=== PATIENT | female | born 1950 | race Caucasian/White ===

== ENCOUNTER 2019-12-03 16:58 | Inpatient (IN) | payer MEDICARE, OTHER ==
[~2019-12-03] VITALS: Ht 165.1 cm; Wt 95.5 kg
[2019-12-03] MEDS ORDERED: VANCOMYCIN 1G/D5W 200 ML PIGGYBACK IV ONE (19:00)
--- NOTE | 2019-12-03 19:00 | NUR ---
Dr. Bronson at bedside for MSE.
[2019-12-03] MEDS ORDERED: VANCOMYCIN HCL 500 MG VIAL ONE (19:17)
[2019-12-03] MEDS ORDERED: VANCOMYCIN 1000 MG VIAL ONE (19:17)
[2019-12-03 19:28] LABS: BASOPHILS # (AUTO) 0.1 K/uL (0.0-8.0); BASOPHILS % (AUTO) 1.2 % (0.0-2.0); EOSINOPHILS # (AUTO) 0.3 K/uL (0.0-0.7); EOSINOPHILS % (AUTO) 3.3 % (0.0-7.0); HEMATOCRIT 34.4 % (31.2-41.9); HEMOGLOBIN 11.8 g/dL (10.9-14.3); LYMPHOCYTES # (AUTO) 1.9 K/uL (20.0-40.0); LYMPHOCYTES % (AUTO) 22.4 % (20.5-51.5); MEAN CORPUSCULAR HEMOGLOBIN 28.2 uug (24.7-32.8); MEAN CORPUSCULAR HGB CONC 34 g/dL (32.3-35.6); MEAN CORPUSCULAR VOLUME 81.9 fL (75.5-95.3); MONOCYTES # (AUTO) 0.7 K/uL (2.0-10.0); MONOCYTES % (AUTO) 8.2 % (0.0-11.0); NEUTROPHILS # (AUTO) 5.5 K/uL (1.8-8.9); NEUTROPHILS % (AUTO) 64.9 % (38.5-71.5); PLATELET COUNT (AUTO) 230 K/uL (179-408); WHITE BLOOD COUNT (AUTO) 8.5 K/uL (3.8-11.8)
[2019-12-03 19:38] LABS: CARBON DIOXIDE 25 mmol/L (21-32); CHLORIDE 102 mmol/L (98-107); CREATININE 1.7 mg/dL (0.6-1.3); POTASSIUM 4.2 mmol/L (3.5-5.1); UREA NITROGEN, BLOOD 37 mg/dL (7-18)
[2019-12-03 19:40] LABS: GLUCOSE 383 mg/dL (74-106)
--- NOTE | 2019-12-03 19:46 | NUR ---
Xray at bedside.
[2019-12-03 19:52] LABS: ALANINE AMINOTRANSFERASE 37 U/L (14-59); ALKALINE PHOSPHATASE 105 U/L (50-136); ASPARTATE AMINOTRANSFERASE 28 U/L (15-37); BILIRUBIN,TOTAL 0.6 mg/dL (0.2-1.0); TOTAL PROTEIN, SERUM 7.7 g/dL (6.4-8.2)
[2019-12-03 19:57] LABS: BILIRUBIN,DIRECT 0.1 mg/dL (0.0-0.2)
--- NOTE | 2019-12-03 19:58 | NUR ---
Pt unable to provide urine at this time.
--- NOTE | 2019-12-03 20:32 | NUR ---
Called [facility] to page Anthony Coughlin NP.
--- NOTE | 2019-12-03 20:47 | NUR ---
Dr. Bronson speaking with Anthony Ortiz NP. Patient accepted for admission to [facility], diagnosis: cellulitis left foot.
--- NOTE | 2019-12-03 20:55 | NUR ---
Pt provided urine sample, sent to lab.
--- NOTE | 2019-12-03 20:58 | NUR ---
Anthony Ortiz DEVELOPER ANALYST at bedside.
[2019-12-03 21:08] LABS: *BILIRUBIN,URIN NEGATIVE (NEGATIVE); *BLOOD, URINE NEGATIVE (NEGATIVE); *COLOR,URINE YELLOW (YELLOW); *KETONES,URINE NEGATIVE (NEGATIVE); *UROBILINOGEN,URINE 0.2 E.U./dl (NORMAL); LEUKOCYTE ESTERASE ,URINE NEGATIVE (NEGATIVE); NITRITE, URINE NEGATIVE (NEGATIVE)
[2019-12-03 21:09] LABS: *CLARITY,URINE HAZY (CLEAR); UGLUCOSE 1+ (NEGATIVE)
--- NOTE | 2019-12-03 21:16 | NUR ---
Per pt's daughter, unable to get list of medications will need to call their pharmacy tomorrow.
--- NOTE | 2019-12-03 21:21 | NUR ---
Report given to Patricia PAUL Medsurg.
[2019-12-03 21:26] LABS: BACTERIA,URINE FEW /HPF (NONE SEEN); RBC,URINE 0-3 /HPF (0-3); SQUAMOUS EPITHELIAL CELL,UR FEW /HPF (NONE SEEN); WBC,URINE 0-3 /HPF (0-3)
[2019-12-03] MEDS ORDERED: INSULIN REGULAR, HUMAN 300 UNIT/3 ML VIAL ONE (21:36)
[2019-12-03] MEDS ORDERED: PIPERACILLIN SODIUM/TAZOBACTAM 3.375 G in IV DEXTROSE 5% 50 ML IV SCH (21:45)
[2019-12-03] MEDS ORDERED: Z GUARD REMEDY PASTE 57 GM TUBE TOP PRN (21:45)
[2019-12-03] MEDS ORDERED: DEXTROSE 50% 50 ML DISP.SYRIN IV PRN (21:45)
[2019-12-03] MEDS ORDERED: INSULIN REGULAR, HUMAN 300 UNIT/3 ML VIAL SQ PRN (21:45)
[2019-12-03] MEDS ORDERED: ACETAMINOPHEN 325 MG TABLET PO PRN (21:45)
[2019-12-03] MEDS ORDERED: MAGNESIUM HYDROXIDE 30 ML LIQUID UDC PO PRN (21:45)
[2019-12-03] MEDS ORDERED: ONDANSETRON 4 MG/2 ML VIAL IV PRN (21:45)
[2019-12-03] MEDS ORDERED: INSULIN REGULAR, HUMAN 300 UNIT/3 ML VIAL IV ONE (21:45)
[2019-12-03] MEDS ORDERED: PIPERACILLIN/TAZOBACTAM/D5W 2.25 G in PREMIXED 1 EACH IV SCH (22:00)
[2019-12-03 22:23] VITALS: BP 144/55
--- NOTE | 2019-12-03 22:30 | NUR ---
admitted this 69 y.o. pleasant lady,via gurney,with complaints of left 4th toe cellulitis,accompanied by er nurse and her daughter,transferred to bed and kept warm and comfortable, iv site on rt . forearm patent and intact, ivpb vanco infusing well.needs attended to, admission care rendered.asymptomatic of any ssx of diabetic crises.halfway assessment done, photo of left 4th toe taken, cleanse with normal saline and covered with dry sterile gauze.admission orders carried out.assisted to br , voided freely well .
[2019-12-03] MEDS ORDERED: PIPERACILLIN SODIUM/TAZO 3.375 GM VIAL ONE (23:26)
[2019-12-03] MEDS: IV NS 1000 ML 1,000 ML IV PRN (23:29)
[2019-12-03] MEDS ORDERED: PIPERACILLIN/TAZOBACTAM/D5W 100 ML ONE (23:32)
--- NOTE | 2019-12-04 | NUR ---
ZOSYN 2.25GM INFUSED ORDERED, RESTIN QUIETLY IN BED, CALL LITE W/I REACH.HOB ELEVATED, ASPIRATION PREC OBSERVED. DVT PUMPS ON .
--- NOTE | 2019-12-04 02:30 | NUR ---
sound asleep in bed, no acute distress noted.iv fluids infusing well w/o any problems.list of meds will be brought in by daughter this am.
[2019-12-04 05:13] VITALS: BP 124/41
[2019-12-04 06:24] LABS: BASOPHILS # (AUTO) 0.1 K/uL (0.0-8.0); BASOPHILS % (AUTO) 0.7 % (0.0-2.0); EOSINOPHILS # (AUTO) 0.3 K/uL (0.0-0.7); EOSINOPHILS % (AUTO) 3.8 % (0.0-7.0); HEMATOCRIT 31.8 % (31.2-41.9); HEMOGLOBIN 10.8 g/dL (10.9-14.3); LYMPHOCYTES # (AUTO) 1.7 K/uL (20.0-40.0); LYMPHOCYTES % (AUTO) 20.7 % (20.5-51.5); MEAN CORPUSCULAR HEMOGLOBIN 28.1 uug (24.7-32.8); MEAN CORPUSCULAR HGB CONC 34 g/dL (32.3-35.6); MEAN CORPUSCULAR VOLUME 82.6 fL (75.5-95.3); MONOCYTES # (AUTO) 0.7 K/uL (2.0-10.0); MONOCYTES % (AUTO) 8.6 % (0.0-11.0); NEUTROPHILS # (AUTO) 5.3 K/uL (1.8-8.9); NEUTROPHILS % (AUTO) 66.2 % (38.5-71.5); PLATELET COUNT (AUTO) 184 K/uL (179-408); RED BLOOD CELL COUNT(AUTO) 3.85 MIL/uL (3.63-4.92)
[2019-12-04 07:10] LABS: CARBON DIOXIDE 25 mmol/L (21-32); CHLORIDE 101 mmol/L (98-107); CHOLESTEROL 219 mg/dL (<200); CREATININE 1.5 mg/dL (0.6-1.3); HDL CHOLESTEROL 30 mg/dL (40-60); MAGNESIUM 1.8 mg/dL (1.8-2.4); PHOSPHOROUS 3.6 mg/dL (2.5-4.9); POTASSIUM 4.3 mmol/L (3.5-5.1); TRIGLYCERIDES 358 MG/DL (30-150); UREA NITROGEN, BLOOD 37 mg/dL (7-18)
[2019-12-04 07:17] LABS: THYROID STIMULATING HORMONE 2.319 mIU/mL (0.358-3.740)
[2019-12-04] MEDS ORDERED: BLOOD SUGAR DIAGNOSTIC 1 EACH STRIP VI SCH (07:30)
--- NOTE | 2019-12-04 07:39 | NUR ---
BLOOD SUGAR THIS AM-369, NO DIABETIC CRISES NOTED, PT UPSET BECAUSE ,NURSING STAFF, ORTHO ASSISTANT AND OTHER ANCILLARY PERSONNEL HAVE TO CONSISTENTLY MONITOR HER PART OF HER NURSING CARE, INSTRUCTED ON ACCURATE MEASUREMENT OF HER INTAKE AND OUTPUT,, ABLE TO VERBALIZE UNDERSTANDING, DAUGHTER TO CHECK ON LIST OF PT'S MEDS.
--- NOTE | 2019-12-04 07:46 | NUR ---
ENDORSED TO AM NURSE IN APPARENTLY FAIR CONDITION.
--- NOTE | 2019-12-04 07:52 | NUR ---
Patient resting comfortably in bed. No signs of distress, stable condition. Denies any pain or SOB. A/Ox4. Blood sugar re-checked this morning - 379, will cover insulin per sliding scale. IVF running. Safety measures implemented. Patient verbalized that home medications will be brought by daughter today - will follow-up. Call light within reach of patient. Will continue to monitor throughout shift.
[2019-12-04 08:25] LABS: GLUCOSE 426 mg/dL (74-106)
--- NOTE | 2019-12-04 09:53 | NUR ---
Clinical Pharmacy Note: Vancomycin Dosing per Pharmacy Subjective: Vancomycin IV to start on this 69 yo female patient for empiric tx (per MD note" Left fourth toe ulcer with cellulitis" Objective: BUN 37/Scr 1.5 WBC 8 Temperature 98.4 Vanco random level on 12/03 with am labs: 13.1 Assessment/Plan: Patient received vanco 1500mg IVPB x1 on 12/02 at 1930. Due to unstable srcr, will dose by level for now. Since vanco random is 13.1 mcg/ml this am, will give vancomycin 1500mg IVPB x1 today at 1000. Pharmacy shall review srcr in am & order random level if/when needed for further dosing. Will follow daily.
[2019-12-04] MEDS ORDERED: VANCOMYCIN IV 1,500 MG in IV DEXTROSE 5% 500 ML IV ONE (10:00)
--- NOTE | 2019-12-04 11:00 | NUR ---
Patient's home medications still unable to obtain at this time. Patient's pharmacy is closed on the weekends. Patient verbalized that her daughter will try to obtain patient's medications from her home. Will contact patient's daughter for an update on patient's home medications.
[2019-12-04 11:23] VITALS: BP 139/57
[2019-12-04] MEDS ORDERED: INSULIN REGULAR, HUMAN 300 UNITS/3 ML VIAL SQ PRN (11:45)
[2019-12-04] MEDS ORDERED: DEXTROSE 50% 50 ML DISP.SYRIN IV PRN (11:45)
[2019-12-04] MEDS: BLOOD SUGAR DIAGNOSTIC 1 EACH STRIP VI SCH ×3 (11:46→21:11)
[2019-12-04] MEDS: INSULIN REGULAR, HUMAN 300 UNIT/3 ML VIAL SQ PRN ×2 (11:57→17:39)
--- NOTE | 2019-12-04 12:00 | NUR ---
Was able to get a hold of patient's daughter regarding patient's home medications. Patient's daughter verbalized that she will go to patient's home to try to obtain home medications and bring them to the hospital.
[2019-12-04] MEDS ORDERED: PIPERACILLIN SODIUM/TAZOBACTAM 3.375 G in IV DEXTROSE 5% 50 ML IV SCH (14:00)
[2019-12-04 15:44] VITALS: BP 135/58
--- NOTE | 2019-12-04 16:10 | NUR ---
Patient's home medications still unable to be obtained. Patient's daughter has not shown up with medications yet.
--- NOTE | 2019-12-04 18:35 | NUR ---
ABX administered, IVF running. No signs of distress. Denies any pain or SOB. Call light within reach of patient. Safety measures implemented. call light within reach of patient.
[2019-12-04 20:06] VITALS: BP 153/59
[2019-12-04] MEDS: CEFTRIAXONE 1 G in IV DEXTROSE 5% 50 ML IV SCH (20:43)
[2019-12-04] MEDS ORDERED: INSULIN GLARGINE,HUM 300 UNITS/3 ML CARTRIDGE SQ SCH (21:00)
[2019-12-05] MEDS: IV NS 1000 ML 1,000 ML IV PRN ×2 (01:28→19:48)
[2019-12-05] MEDS: HYDROCODONE/APAP 5-325MG TABLET PO PRN (01:51)
[2019-12-05 04:53] VITALS: BP 146/51
--- NOTE | 2019-12-05 06:26 | NUR ---
BLOOD SUGAR THIS AM IS 343, PATIENT HAS NO S/S OF DIABETIC CRISIS. WILL CONTINUE TO MONITOR AND ASSESS AND PROVIDE REPORT TO AM SHIFT.
[2019-12-05 06:52] LABS: CARBON DIOXIDE 25 mmol/L (21-32); CHLORIDE 101 mmol/L (98-107); CREATININE 1.6 mg/dL (0.6-1.3); POTASSIUM 4.1 mmol/L (3.5-5.1); UREA NITROGEN, BLOOD 27 mg/dL (7-18)
[2019-12-05 06:58] LABS: GLUCOSE 385 mg/dL (74-106)
[2019-12-05 07:11] LABS: BASOPHILS # (AUTO) 0.1 K/uL (0.0-8.0); BASOPHILS % (AUTO) 0.9 % (0.0-2.0); EOSINOPHILS # (AUTO) 0.4 K/uL (0.0-0.7); EOSINOPHILS % (AUTO) 4.6 % (0.0-7.0); HEMATOCRIT 31.8 % (31.2-41.9); HEMOGLOBIN 10.8 g/dL (10.9-14.3); LYMPHOCYTES # (AUTO) 2.1 K/uL (20.0-40.0); LYMPHOCYTES % (AUTO) 25.8 % (20.5-51.5); MEAN CORPUSCULAR HGB CONC 34 g/dL (32.3-35.6); MONOCYTES # (AUTO) 0.8 K/uL (2.0-10.0); MONOCYTES % (AUTO) 9.4 % (0.0-11.0); NEUTROPHILS # (AUTO) 4.8 K/uL (1.8-8.9); NEUTROPHILS % (AUTO) 59.3 % (38.5-71.5); PLATELET COUNT (AUTO) 184 K/uL (179-408); RED BLOOD CELL COUNT(AUTO) 3.87 MIL/uL (3.63-4.92)
--- NOTE | 2019-12-05 07:30 | NUR ---
ENDORSED TO ESTHER ABOUT CRITICAL LAB OF GLUCOSE 385
[2019-12-05] MEDS: BLOOD SUGAR DIAGNOSTIC 1 EACH STRIP VI SCH ×4 (07:42→22:20)
[2019-12-05] MEDS: INSULIN REGULAR, HUMAN 300 UNIT/3 ML VIAL SQ PRN ×3 (08:25→17:00)
--- NOTE | 2019-12-05 09:48 | NUR ---
Clinical Pharmacy Note: Vancomycin Dosing per Pharmacy Subjective: Vancomycin IV to continue on this 69 yo female patient for empiric tx (per MD note" Left fourth toe ulcer with cellulitis" Objective: BUN 27/Scr 1.6 WBC 8 Temperature 98.1 Vanco random level on 12/03 with am labs: 13.1 Vanco random pending today at 1500 Assessment/Plan: Patient received vanco 1500mg IVPB x1 on 12/03 @1000. Due to unstable srcr, will dose by level for now. Random level pending today for 1500. Will check level when available and redose as needed. Will follow Addendum: 12/05/19 at 1539 by ROSIBEL CHI ADM RANDOM RESULTED 8.4, WILL DOSE ANOTHER 1500MG VANCO TODAY FOR 1600. NEXT RANDOM ORDERED TOMORROW AT 1500. WILL FOLLOW FOR FURTHER DOSING
[2019-12-05] MEDS ORDERED: DEXTROSE 50% 50 ML DISP.SYRIN IV PRN (11:15)
[2019-12-05] MEDS: DILTIAZEM HCL CD 180 MG CAP.SR.24H PO SCH ×2 (11:15→17:00)
[2019-12-05 11:21] VITALS: BP 132/46
[2019-12-05] MEDS: ASPIRIN 81 MG TAB.CHEW PO SCH (11:44)
[2019-12-05] MEDS: METOPROLOL SUCCINATE XL 25 MG TAB.SR.24H PO SCH ×2 (11:45→17:54)
[2019-12-05] MEDS: FERROUS SULFATE 325 MG TABEC PO SCH ×2 (13:09→17:51)
--- NOTE | 2019-12-05 13:30 | NUR ---
Pt received, assessed, no acute distress, VSS, and able to make needs known. Pt AAOx4, denies pain at this time. Lab glucose continues to be elevated, MD aware of trend. New order for Moderate sliding scale received, 16 units of coverage administered for BS 337 prior to lunch. Left arm IV flushed, patent, intact, running NS 75ml/hr. All comfort and safety measures implemented. Call light within reach, Pt wishes to catch up on rest, will continue to monitor for safety.
[2019-12-05 15:20] VITALS: BP 140/63
[2019-12-05] MEDS ORDERED: VANCOMYCIN IV 1,500 MG in IV DEXTROSE 5% 500 ML IV ONE (16:00)
[2019-12-05] MEDS: CEFTRIAXONE 1 G in IV DEXTROSE 5% 50 ML IV SCH (19:54)
--- NOTE | 2019-12-05 20:00 | NUR ---
PATIENT RECEIVED INTO CARE LAYING IN BED AWAKE WITH DAUGHTERS AT BEDSIDE. PATIENT IS ALERT/ORIENTED X3 AND HAS NO COMPLAINTS OF PAIN OR DISCOMFORT AT THIS TIME. ALL SAFETY AND FALL PRECAUTION MEASURES ARE IN PLACE. CALL LIGHT AND PERSONAL ITEMS ARE WITHIN REACH AT ALL TIMES. WILL CONTINUE TO MONITOR AND ASSESS.
[2019-12-05 20:47] VITALS: BP 146/52
--- NOTE | 2019-12-05 20:53 | NUR ---
BROOM MACHINE OPERATOR ZOE HERE TO INSERT MIDLINE.
[2019-12-05] MEDS ORDERED: INSULIN GLARGINE,HUM 300 UNITS/3 ML CARTRIDGE SQ SCH (21:00)
--- NOTE | 2019-12-05 21:05 | NUR ---
STERILE TECH DISCUSSED WITH PATIENT RISKS/BENEFITS OF MIDLINE VS PICC LINE AND PATIENT HAS DECIDED TO AGAINST MIDLINE AND WOULD RATHER HAVE PICC LINE INSERTED.
[2019-12-05] MEDS: PREGABALIN 50 MG CAPSULE PO SCH (21:48)
[2019-12-05] MEDS: INSULIN REGULAR, HUMAN 300 UNITS/3 ML VIAL SQ PRN (22:22)
[2019-12-06] MEDS: HYDROCODONE/APAP 5-325MG TABLET PO PRN (02:01)
--- NOTE | 2019-12-06 06:00 | NUR ---
Patient slept comfortably throughout night with complaints of pain addressed with prescribed analgesic. All prescribed medications were provided as ordered and tolerated well by patient, with no adverse side effects verbalized by patient or noted/observed by nurse. LIVESTOCK RANCH HAND Arturo came to insert midline but after consultation with patient and daughters, patient would like to have PICC line instead if ATB treatment is to last greater than 2 weeks. All safety and fall precaution measures remain in place. Call light and personal items remain within reach at all times.
[2019-12-06] MEDS: PANTOPRAZOLE SODIUM 40 MG TABLET.DR PO SCH (06:13)
[2019-12-06] MEDS: BLOOD SUGAR DIAGNOSTIC 1 EACH STRIP VI SCH ×4 (06:20→20:46)
[2019-12-06 06:34] LABS: CREATININE 1.3 mg/dL (0.6-1.3); POTASSIUM 4.2 mmol/L (3.5-5.1)
[2019-12-06 06:41] VITALS: BP 156/58
--- NOTE | 2019-12-06 07:19 | NUR ---
Notified by lab of glucose at 320. Patient is not in diabetic crisis. Will have AM shift follow up.
[2019-12-06 07:24] LABS: BASOPHILS # (AUTO) 0.1 K/uL (0.0-8.0); BASOPHILS % (AUTO) 0.9 % (0.0-2.0); EOSINOPHILS # (AUTO) 0.4 K/uL (0.0-0.7); EOSINOPHILS % (AUTO) 4.4 % (0.0-7.0); HEMATOCRIT 31.5 % (31.2-41.9); HEMOGLOBIN 10.8 g/dL (10.9-14.3); LYMPHOCYTES # (AUTO) 1.9 K/uL (20.0-40.0); LYMPHOCYTES % (AUTO) 23.2 % (20.5-51.5); MEAN CORPUSCULAR HEMOGLOBIN 28.1 uug (24.7-32.8); MEAN CORPUSCULAR HGB CONC 34 g/dL (32.3-35.6); MEAN CORPUSCULAR VOLUME 82.2 fL (75.5-95.3); MONOCYTES # (AUTO) 0.7 K/uL (2.0-10.0); MONOCYTES % (AUTO) 8.1 % (0.0-11.0); NEUTROPHILS # (AUTO) 5.2 K/uL (1.8-8.9); NEUTROPHILS % (AUTO) 63.4 % (38.5-71.5); PLATELET COUNT (AUTO) 188 K/uL (179-408); RED BLOOD CELL COUNT(AUTO) 3.83 MIL/uL (3.63-4.92); WHITE BLOOD COUNT (AUTO) 8.2 K/uL (3.8-11.8)
--- NOTE | 2019-12-06 07:30 | NUR ---
PATIENT CALM AND COMFORTABLE WITH NO SIGNS OF DISTRESS THROUGH OUT SHIFT; PATIENT SCHEDULED FOR MRI AT 8:30 PATRICIA ; PATIENT WILL CONTINUE TO BE MONITORED. Addendum: 12/06/19 at 1821 by YOLI MORENO RN PATIENT CALM AND COMFORTABLE WITH NO SIGNS OF DISTRESS; PATIENT WILL CONTINUE TO BE MONITORED.
--- NOTE | 2019-12-06 07:57 | NUR ---
Clinical Pharmacy Note: Vancomycin Dosing per Pharmacy Subjective: Vancomycin IV to continue on this 69 yo female patient for empiric tx (per MD note" Left fourth toe ulcer with cellulitis" Objective: BUN 20/Scr 1.3 WBC 8.2 Temperature 98.7 Vanco random level on 12/03 with am labs: 13.1 Vanco random level on 12/04 with am labs: 8.4 Vanco random level on 12/05 with am labs: 14 Assessment/Plan: Since vanco random level is 14 mcg/ml with am labs today, will give vanco 1500mg IVPB x1 today at 0900. Due to unstable srcr, will dose by level for now. Will roder Random level with am labs tomorrow. Will check level when available and re-dose as needed. Will follow
[2019-12-06] MEDS: METOPROLOL SUCCINATE XL 25 MG TAB.SR.24H PO SCH (08:59)
[2019-12-06] MEDS: FERROUS SULFATE 325 MG TABEC PO SCH ×3 (08:59→17:36)
[2019-12-06] MEDS ORDERED: DILTIAZEM HCL CD 180 MG CAP.SR.24H PO SCH (09:00)
[2019-12-06] MEDS ORDERED: VANCOMYCIN IV 1,500 MG in IV DEXTROSE 5% 500 ML IV ONE (09:00)
[2019-12-06] MEDS: LISINOPRIL 5 MG TABLET PO SCH (09:00)
[2019-12-06] MEDS: ASPIRIN 81 MG TAB.CHEW PO SCH (09:06)
[2019-12-06] MEDS: INSULIN REGULAR, HUMAN 300 UNIT/3 ML VIAL SQ PRN ×3 (09:14→16:47)
--- NOTE | 2019-12-06 10:15 | NUR ---
TEXTED DR. WEST FOR MRI APPROVAL.
[2019-12-06] MEDS: DILTIAZEM HCL 30 MG TABLET PO SCH ×2 (11:36→22:20)
[2019-12-06 12:14] VITALS: BP 143/57
[2019-12-06 16:14] VITALS: BP 134/65
--- NOTE | 2019-12-06 18:20 | NUR ---
PATIENT CALM AND COMFORTABLE WITH NO SIGNS OF DISTRESS THROUGH OUT SHIFT; PATIENT SCHEDULED FOR MRI AT 8:30 PATRICIA ; PATIENT WILL CONTINUE TO BE MONITORED.
[2019-12-06] MEDS: CEFTRIAXONE 1 G in IV DEXTROSE 5% 50 ML IV SCH (20:34)
[2019-12-06 20:44] VITALS: BP 148/51
[2019-12-06] MEDS: INSULIN GLARGINE,HUM 300 UNITS/3 ML CARTRIDGE SQ SCH (20:47)
[2019-12-06] MEDS: INSULIN REGULAR, HUMAN 300 UNITS/3 ML VIAL SQ PRN (20:49)
[2019-12-06] MEDS ORDERED: METOPROLOL SUCCINATE XL 25 MG TAB.SR.24H PO SCH (21:00)
[2019-12-06] MEDS: PREGABALIN 50 MG CAPSULE PO SCH (22:22)
--- NOTE | 2019-12-07 00:48 | NUR ---
HANDS OFF REPORT RECEIVED FROM DARIA. PT IN NO ACUTE DISTRESS. SAFETY AND COMFORT PROVIDED. WILL CONTINUE TO MONITOR.
[2019-12-07 04:24] VITALS: BP 146/55
--- NOTE | 2019-12-07 06:00 | NUR ---
PT SLEPT INTERMITTENTLY. PT IN NO ACUTE DISTRESS. IV INTACT. PRESCRIBED MEDICATION GIVEN AND PT TOLERATED IT WELL. SAFETY AND COMFORT PROVIDED. WILL ENDORSE TO INCOMING NURSE FOR CONTINUITY OF CARE.
[2019-12-07] MEDS: PANTOPRAZOLE SODIUM 40 MG TABLET.DR PO SCH (06:07)
--- NOTE | 2019-12-07 06:12 | NUR ---
WOUND CARE CONSULT WOUND CARE RECEIVED CONSULT FOR LEFT 4TH TOE CELLULITIS. WOUND CARE WILL DEFER CONSULT AND TREATMENT PLANS TO DPM DR LAYTON WHO IS CURRENTLY FOLLOWING THIS PATIENT. PATIENT WITH DRAGAN AT 21, WILL SEE PRN.
[2019-12-07 06:16] LABS: BASOPHILS # (AUTO) 0.1 K/uL (0.0-8.0); BASOPHILS % (AUTO) 0.7 % (0.0-2.0); EOSINOPHILS # (AUTO) 0.4 K/uL (0.0-0.7); EOSINOPHILS % (AUTO) 4.7 % (0.0-7.0); HEMATOCRIT 32.2 % (31.2-41.9); LYMPHOCYTES # (AUTO) 1.7 K/uL (20.0-40.0); LYMPHOCYTES % (AUTO) 19.6 % (20.5-51.5); MEAN CORPUSCULAR HEMOGLOBIN 28.1 uug (24.7-32.8); MEAN CORPUSCULAR HGB CONC 34 g/dL (32.3-35.6); MEAN CORPUSCULAR VOLUME 82.1 fL (75.5-95.3); MONOCYTES # (AUTO) 0.8 K/uL (2.0-10.0); MONOCYTES % (AUTO) 8.7 % (0.0-11.0); NEUTROPHILS # (AUTO) 5.8 K/uL (1.8-8.9); NEUTROPHILS % (AUTO) 66.3 % (38.5-71.5); PLATELET COUNT (AUTO) 184 K/uL (179-408); RED BLOOD CELL COUNT(AUTO) 3.92 MIL/uL (3.63-4.92); WHITE BLOOD COUNT (AUTO) 8.7 K/uL (3.8-11.8)
[2019-12-07 06:33] LABS: CREATININE 1.3 mg/dL (0.6-1.3); POTASSIUM 4.2 mmol/L (3.5-5.1); VANCOMYCIN,RANDOM 12.8 ug/mL (18.0-26.0)
[2019-12-07] MEDS: BLOOD SUGAR DIAGNOSTIC 1 EACH STRIP VI SCH ×4 (06:37→20:43)
[2019-12-07] MEDS: INSULIN REGULAR, HUMAN 300 UNIT/3 ML VIAL SQ PRN ×4 (06:54→17:07)
--- NOTE | 2019-12-07 07:00 | NUR ---
lab called for critical lab of glucose 327. .Pt asymptomatic of diabetic crisis. Pt in no acute distress. Charge nurse aware. Will endorse to incoming nurse for continuity of care.
--- NOTE | 2019-12-07 07:30 | NUR ---
Pt. has elevated blood sugar of 385. Pt. is to go to MRI at [facility] today at 7:30/8 AM. Pt. has been NPO since midnight. Charge nurse made aware and instructed not to given insulin until after pt. comes back from procedure since she is NPO.
--- NOTE | 2019-12-07 08:19 | NUR ---
Clinical Pharmacy Note: Vancomycin Dosing per Pharmacy Subjective: Vancomycin IV to continue on this 69 yo female patient for empiric tx (per MD note" Left fourth toe ulcer with cellulitis" Objective: BUN 14/Scr 1.3 WBC 8.7 Temperature 98.3 Vanco random level on 12/03 with am labs: 13.1 Vanco random level on 12/04 with am labs: 8.4 Vanco random level on 12/05 with am labs: 14 Vanco random level on 12/06 with am labs: 12.8 Assessment/Plan: Since vanco random level is 12.8 mcg/ml with am labs today, will give vanco 1500mg IVPB x1 today at 1000. Due to unstable srcr, will dose by level for now. Will order Random level with am labs tomorrow. Will check level when available and re-dose as needed. Will follow
--- NOTE | 2019-12-07 08:36 | NUR ---
Ambulance picked up patient. Patient showed no signs or symptoms of distress at this time. Patient to get MRI completed at [place].
[2019-12-07] MEDS ORDERED: VANCOMYCIN IV 1,500 MG in IV DEXTROSE 5% 500 ML IV ONE (10:00)
--- NOTE | 2019-12-07 10:33 | NUR ---
pt. returned back via ambulance. pt. in stable condition. will check vitals and provide pt. with insulin and AM medication
[2019-12-07] MEDS: DILTIAZEM HCL 30 MG TABLET PO SCH ×2 (10:45→20:32)
[2019-12-07] MEDS: FERROUS SULFATE 325 MG TABEC PO SCH ×3 (10:46→17:05)
[2019-12-07] MEDS: LISINOPRIL 5 MG TABLET PO SCH (10:46)
[2019-12-07] MEDS: ASPIRIN 81 MG TAB.CHEW PO SCH (10:51)
[2019-12-07 11:30] VITALS: BP 130/57
[2019-12-07] MEDS: METOPROLOL TARTRATE 25 MG TABLET PO SCH ×2 (12:04→20:31)
--- NOTE | 2019-12-07 12:20 | NUR ---
Blood sugar checked and is 412. Denies any symptoms and reports feeling fine. Sliding to be given and hospitalist, Julianne, notified. Hospitalist read MRI results and gave telephone order for PICC line insertion. supervisor home energy consultant is aware and will call.
[2019-12-07 15:40] VITALS: BP 121/79
[2019-12-07] MEDS: LINAGLIPTIN 5 MG TABLET PO SCH (17:05)
[2019-12-07] MEDS ORDERED: GADOTERIDOL 279.3 MG/ML, 15 ML VIAL ONE (17:26)
--- NOTE | 2019-12-07 19:30 | NUR ---
Received patient awake and alert in bed, A/Ox4. No signs of acute distress noted. No complaints of pain or SOB at this time. Vitals WNL. Dressing to left 4th toe intact. Heplock on the left forearm is intact and patent. Patient ambulates with steady gait. Safety measures initiated. Bed is low and locked, call light within reach. Will continue to monitor.
[2019-12-07 19:42] VITALS: BP 133/50
[2019-12-07] MEDS: CEFTRIAXONE 1 G in IV DEXTROSE 5% 50 ML IV SCH (20:28)
[2019-12-07] MEDS: PREGABALIN 50 MG CAPSULE PO SCH (20:31)
[2019-12-07] MEDS: MUPIROCIN 2% OINT 22 GM TUBE TP SCH (20:32)
[2019-12-07] MEDS: INSULIN REGULAR, HUMAN 300 UNITS/3 ML VIAL SQ PRN (20:39)
[2019-12-07] MEDS: INSULIN GLARGINE,HUM 300 UNITS/3 ML CARTRIDGE SQ SCH (20:39)
--- NOTE | 2019-12-07 21:20 | NUR ---
Picc line inserted left upper arm, double lumen.
[2019-12-08 04:57] VITALS: BP 102/54
[2019-12-08] MEDS: PANTOPRAZOLE SODIUM 40 MG TABLET.DR PO SCH (06:35)
[2019-12-08] MEDS: BLOOD SUGAR DIAGNOSTIC 1 EACH STRIP VI SCH ×2 (06:35→12:15)
--- NOTE | 2019-12-08 08:27 | NUR ---
Clinical Pharmacy Note: Vancomycin Dosing per Pharmacy Subjective: Vancomycin IV to continue on this 69 yo female patient for empiric tx (per MD note" Left fourth toe ulcer with cellulitis" Objective: BUN 14/Scr 1.3 WBC 8.7 Temperature 98.3 Vanco random level on 12/03 with am labs: 13.1 Vanco random level on 12/04 with am labs: 8.4 Vanco random level on 12/05 with am labs: 14 Vanco random level on 12/06 with am labs: 12.8 Vanco random level on 12/07 with am labs:12.0 Assessment/Plan: Since vanco random level is 12.0 mcg/ml with am labs today, will give vanco 1500mg IVPB x1 today at 0930. Due to unstable srcr, will dose by level for now. Will order Random level with am labs tomorrow. Will check level when available and re-dose as needed. Will follow
[2019-12-08] MEDS ORDERED: VANCOMYCIN IV 1,500 MG in IV DEXTROSE 5% 500 ML IV ONE (09:30)
[2019-12-08] MEDS: LINAGLIPTIN 5 MG TABLET PO SCH (09:55)
[2019-12-08] MEDS: METOPROLOL TARTRATE 25 MG TABLET PO SCH (09:55)
[2019-12-08] MEDS: DILTIAZEM HCL 30 MG TABLET PO SCH (09:55)
[2019-12-08] MEDS: LISINOPRIL 5 MG TABLET PO SCH (09:55)
[2019-12-08] MEDS: FERROUS SULFATE 325 MG TABEC PO SCH ×2 (09:55→12:11)
[2019-12-08] MEDS: ASPIRIN 81 MG TAB.CHEW PO SCH (09:56)
[2019-12-08] MEDS: MUPIROCIN 2% OINT 22 GM TUBE TP SCH (09:58)
[2019-12-08] MEDS: INSULIN REGULAR, HUMAN 300 UNIT/3 ML VIAL SQ PRN ×2 (10:02→12:14)
[2019-12-08 11:00] VITALS: BP 121/48
--- NOTE | 2019-12-08 15:42 | NUR ---
Patient discharge home with home health for IV antibiotics. Patient shows no signs or symptoms of distress at this time. Vital signs stable. Patient to follow up with Dr. West at [facility] for outpatient wound care. Peripheral IV removed. ID Band removed. PICC line in place with both lumens flushing well. Daughter here to take patient home. Patient discharged home in stable condition.
== END 2019-12-08 15:40 | disposition home health service (06) | DRG 602 ==
LOC: ER 17:13 → MEDSURG3 21:38
PROVIDERS: ADMIT Nurse Practitioner Acute Care; ATTEND Nurse Practitioner Acute Care
PROC: 05HY33Z Insertion of Infusion Device into Upper Vein, Percutaneous Approach (ICD-10-PCS; principal; 2019-12-07)
DX: L03.032 Cellulitis of left toe (principal); N17.0 Acute kidney failure with tubular necrosis; L03.116 Cellulitis of left lower limb; M86.8X7 Other osteomyelitis, ankle and foot; D68.59 Other primary thrombophilia; E87.1 Hypo-osmolality and hyponatremia; E11.69 Type 2 diabetes mellitus with other specified complication; E11.621 Type 2 diabetes mellitus with foot ulcer; L97.529 Non-pressure chronic ulcer of other part of left foot with unspecified severity; E11.51 Type 2 diabetes mellitus with diabetic peripheral angiopathy without gangrene; E11.42 Type 2 diabetes mellitus with diabetic polyneuropathy; I10 Essential (primary) hypertension; E11.22 Type 2 diabetes mellitus with diabetic chronic kidney disease; E11.65 Type 2 diabetes mellitus with hyperglycemia; I12.9 Hypertensive chronic kidney disease with stage 1 through stage 4 chronic kidney disease, or unspecified chronic kidney disease; I25.10 Atherosclerotic heart disease of native coronary artery without angina pectoris; Z95.1 Presence of aortocoronary bypass graft; Z95.5 Presence of coronary angioplasty implant and graft; N18.2 Chronic kidney disease, stage 2 (mild); Z80.0 Family history of malignant neoplasm of digestive organs; Z87.891 Personal history of nicotine dependence; I48.91 Unspecified atrial fibrillation; Z79.01 Long term (current) use of anticoagulants; E86.9 Volume depletion, unspecified; E78.5 Hyperlipidemia, unspecified; G89.29 Other chronic pain; M77.32 Calcaneal spur, left foot; E66.9 Obesity, unspecified
CPT/HCPCS: 36415; 73630; 83605; 83735; 84100; 84443; 85025; 85651; 87040; 87070; A4663; A9579; G0378; J0696; J1815; J2543; J3370; J7030; J7060